=== PATIENT | female | born 1975 | race African-American/Black ===

== ENCOUNTER 2017-09-16 20:46 | Emergency (ER) | payer OTHER ==
[~2017-09-16] VITALS: Ht 162.6 cm; Wt 102.1 kg
[2017-09-16 21:17] VITALS: BP_SYST 115
[2017-09-16 22:08] VITALS: BP_SYST 120
== END 2017-09-16 22:08 | disposition home or self-care (01) ==
LOC: SED 20:46
DX: S66.211A Strain of extensor muscle, fascia and tendon of right thumb at wrist and hand level, initial encounter (principal); M65.841 Other synovitis and tenosynovitis, right hand; X58.XXXA Exposure to other specified factors, initial encounter; Y93.89 Activity, other specified; Y92.89 Other specified places as the place of occurrence of the external cause; Y99.8 Other external cause status
CPT/HCPCS: 99283

== ENCOUNTER 2017-12-19 18:24 | Emergency (ER) | payer OTHER ==
[~2017-12-19] VITALS: Ht 162.6 cm; Wt 102.1 kg
[2017-12-19 18:24] VITALS: BP_SYST 139
[2017-12-19] MEDS ORDERED: KETOROLAC TROMETHAMINE 60 MG/2 ML VIAL IM ONE (18:45)
[2017-12-19 19:00] LABS: BASOPHILS # (AUTO) 0.1 K/uL (0.0-0.2); BASOPHILS % (AUTO) 1.4 % (0.0-2.0); EOSINOPHILS # (AUTO) 0.1 K/uL (0.0-0.4); EOSINOPHILS % (AUTO) 1.1 % (0.0-4.0); HEMATOCRIT 42.8 % (36-48); HEMOGLOBIN 13.6 g/dL (12.0-16.0); LYMPHOCYTES # (AUTO) 2.5 K/uL (1.0-5.5); LYMPHOCYTES % (AUTO) 27.7 % (20.5-51.5); MEAN CORPUSCULAR HEMOGLOBIN 30 pg (27-31); MEAN CORPUSCULAR HGB CONC 32 % (32-36); MEAN CORPUSCULAR VOLUME 95 fL (79.0-98.0); MONOCYTES # (AUTO) 0.6 K/uL (0.0-1.0); MONOCYTES % (AUTO) 6.3 % (1.7-9.3); NEUTROPHILS # (AUTO) 5.6 K/uL (1.8-7.7); NEUTROPHILS % (AUTO) 63.5 % (40.0-70.0); PLATELET COUNT (AUTO) 235 K/uL (130-430); RED BLOOD CELL COUNT(AUTO) 4.49 MIL/uL (4.2-6.2); RED CELL DISTRIBUTION WIDTH 12.7 % (9.0-15.0); WHITE BLOOD COUNT (AUTO) 8.9 K/uL (4.8-10.8)
[2017-12-19 19:08] LABS: CALCIUM 9.1 mg/dL (8.4-11.0); CREATININE 0.92 mg/dL (0.55-1.30); POTASSIUM 3.5 mmol/L (3.5-5.1)
[2017-12-19 19:13] LABS: ALBUMIN 3.4 g/dL (3.4-4.8); TOTAL BILIRUBIN 0.2 mg/dL (0.0-1.0)
[2017-12-19 20:07] VITALS: BP_SYST 134
== END 2017-12-19 20:07 | disposition home or self-care (01) ==
LOC: SED 18:24
DX: R07.89 Other chest pain (principal); R03.0 Elevated blood-pressure reading, without diagnosis of hypertension
CPT/HCPCS: 36415; 71045; 81025; 80053; 82550; 84484; 85025; 93005; 96372; 99285; J1885

== ENCOUNTER 2019-03-19 09:46 | Emergency (ER) | payer OTHER ==
[~2019-03-19] VITALS: Ht 170.2 cm; Wt 81.6 kg
[2019-03-19 09:46] VITALS: BP_SYST 135
--- NOTE | 2019-03-19 09:55 | NUR ---
Patient triaged and placed in waiting room. VSS and patient appears in no acute distress at this time. Accompanied by self, awaiting available bed, and MD notified of need for MSE.
--- NOTE | 2019-03-19 10:20 | NUR ---
Patient called, no answer.
--- NOTE | 2019-03-19 10:25 | NUR ---
Patient is with phlebotomy, then will goto radiology.
--- NOTE | 2019-03-19 10:35 | NUR ---
Placed in room 4 . Placed on long lines operator, blood pressure machine and pulse oximeter. To gown for exam. Side rails up.
--- NOTE | 2019-03-19 10:40 | NUR ---
ER Dr. Ram at bedside examining patient.
[2019-03-19 10:46] LABS: BASOPHILS % (AUTO) 0.3 % (0.0-2.0); EOSINOPHILS # (AUTO) 0.1 K/uL (0.0-0.4); EOSINOPHILS % (AUTO) 1.3 % (0.0-4.0); LYMPHOCYTES # (AUTO) 1.5 K/uL (1.0-5.5); LYMPHOCYTES % (AUTO) 19.4 % (20.5-51.5); MEAN CORPUSCULAR HEMOGLOBIN 32 pg (27-31); MEAN CORPUSCULAR HGB CONC 33 % (32-36); MEAN CORPUSCULAR VOLUME 95 fL (79.0-98.0); MONOCYTES # (AUTO) 0.5 K/uL (0.0-1.0); MONOCYTES % (AUTO) 5.8 % (1.7-9.3); NEUTROPHILS # (AUTO) 5.8 K/uL (1.8-7.7); NEUTROPHILS % (AUTO) 73.2 % (40.0-70.0); PLATELET COUNT (AUTO) 182 K/uL (130-430); RED BLOOD CELL COUNT(AUTO) 4.11 MIL/uL (4.2-6.2); RED CELL DISTRIBUTION WIDTH 14.2 % (9.0-15.0); WHITE BLOOD COUNT (AUTO) 7.9 K/uL (4.8-10.8)
[2019-03-19 11:11] LABS: CALCIUM 7.9 mg/dL (8.4-11.0); CREATININE 0.86 mg/dL (0.55-1.30); PROTHROMBIN TIME 9.7 SECS (9.5-12.5)
[2019-03-19 11:16] LABS: ALBUMIN 3.3 g/dL (3.4-4.8); TOTAL BILIRUBIN 0.2 mg/dL (0.0-1.0)
--- NOTE | 2019-03-19 12:06 | NUR ---
Patient given written and verbal discharge instructions and verbalizes understanding. ER MD Ram discussed with patient the results and treatment provided. Patient in stable condition. ID arm band removed. Rx of Ibuprofen, Sudafed, Azithryomycin given. Patient educated on pain management and to follow up with PMD. Pain Scale 0. Opportunity for questions provided and answered. Medication side effect fact sheet provided.
[2019-03-19 12:07] VITALS: BP_SYST 105
== END 2019-03-19 12:07 | disposition home or self-care (01) ==
LOC: SED 09:46
DX: R07.81 Pleurodynia (principal); J40 Bronchitis, not specified as acute or chronic
CPT/HCPCS: 36415; 71045; 80053; 81025; 84484; 84703; 85025; 85610-TC; 85730-TC; 99284

== ENCOUNTER 2023-05-02 10:51 | Emergency (ER) | payer BC, OTHER ==
[~2023-05-02] VITALS: Ht 162.6 cm; Wt 99.8 kg
[2023-05-02 10:54] VITALS: BP_SYST 140; PULSE 94; RESP 15; TEMP 97.1; O2SAT 100
[2023-05-02] MEDS ORDERED: NAPR-688 PO (11:37)
[2023-05-02] MEDS ORDERED: TRAM50TA2 PO (11:37)
[2023-05-02] MEDS ORDERED: SOM350 PO (11:37)
[2023-05-02 12:03] VITALS: BP_SYST 115; PULSE 82; RESP 16; TEMP 96.9; O2SAT 99
== END 2023-05-02 12:02 | disposition home or self-care (01) ==
LOC: SED 10:51
DX: S39.012A Strain of muscle, fascia and tendon of lower back, initial encounter (principal); X58.XXXA Exposure to other specified factors, initial encounter; Y93.89 Activity, other specified; Y92.89 Other specified places as the place of occurrence of the external cause; Y99.8 Other external cause status
CPT/HCPCS: 99283